=== PATIENT | female | born 1995 | race Caucasian/White ===

== ENCOUNTER 2017-11-26 19:04 | Emergency (ER) | payer MEDICAID ==
[2017-11-26 19:22] VITALS: BP 142/87
[2017-11-26] MEDS ORDERED: Sodium Chloride 0.9% 10 ML Syringe FLUSH PRN (19:42)
[2017-11-26] MEDS ORDERED: Ondansetron 4 MG/2 ML SDV IVPUSH ONE (19:42)
[2017-11-26] MEDS ORDERED: Sodium Chloride 0.9% 1,000 ML IV SCH ×2 (19:45→21:00)
--- NOTE | 2017-11-26 20:04 | EDM.PDOC ---
ED HPI GENERAL MEDICAL PROBLEM - General Chief Complaint: Gastrointestinal Problem Stated Complaint: flu complications Time Seen by Provider: 11/26/17 19:17 Source of Information: Reports: Patient, RN Notes Reviewed - History of Present Illness INITIAL COMMENTS - FREE TEXT/NARRATIVE: 22 year old female with onset of cough, congestion, fever, chills, myalgias 3 to 4 days ago. Started with nausea, vomiting this past early afternoon. Was evaluated at clinic, tested positive for influenza B, started on tamifu. Already nausea, vomiting before she took her first dose. Continued nausea, vomiting, has also had 3 episodes of diarrhea. She is about 12 weeks . No breathing difficulty. No abd pain or cramping at this time. Mouth feels dry. 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: Neurological History: Reports: Migraines - Past Surgical History HEENT Surgical History: Reports: Oral Surgery, Tonsillectomy Neurological Surgical History: Reports: None Social & Family History - Family History Family Medical History: Noncontributory - Tobacco Use Smoking Status *Q: Never Smoker Second Hand Smoke Exposure: Yes - Caffeine Use Caffeine Use: Reports: None - Alcohol Use Days Per Week of Alcohol Use: 0 Number of Drinks Per Day: 0 Total Drinks Per Week: 0 - Recreational Drug Use Recreational Drug Use: No Drug Use in Last 12 Months: No ED ROS GENERAL - Review of Systems Review Of Systems: See Below Constitutional: Reports: Fever, Chills HEENT: Reports: Rhinitis, Sinus Problem (nasal and sinus nikia. ), Throat Pain Respiratory: Reports: Cough, Sputum Cardiovascular: Reports: Chest Pain (with coughing) GI/Abdominal: Reports: Diarrhea, Nausea, Vomiting. Denies: Abdominal Pain Musculoskeletal: Reports: Other (generalized achiness) Neurological: Reports: Dizziness, Headache (now better) ED EXAM, GI/ABD - Physical Exam Exam: See Below General Appearance: Alert, Mild Distress Nose: Nasal Drainage, Clear Rhinorrhea Throat/Mouth: Other (oral mucosa dry) Head: No: Facial Swelling Neck: Supple, Full Range of Motion Respiratory/Chest: No Respiratory Distress, Lungs Clear, Normal Breath Sounds. No: Rhonchi, Wheezing Cardiovascular: Tachycardia GI/Abdominal Exam: Soft, Non-Tender. No: Guarding Extremities: Normal Inspection Neurological: Alert, Oriented, No Motor/Sensory Deficits Skin Exam: Warm, Dry, Normal Color Course - Vital Signs Last Recorded V/S: Last Vital Signs Temp 98.2 F 11/26/17 19:16 Pulse 131 H 11/26/17 19:16 Resp 22 H 11/26/17 19:16 BP 142/87 H 11/26/17 19:16 Pulse Ox 99 11/26/17 19:16 - Orders/Labs/Meds Orders: Active Orders 24 hr Category Date Time Status Peripheral IV Care [RC] . DIRECTED Care 11/26/17 19:42 Active Peripheral IV Insertion Adult [OM.PC] Stat Oth 11/26/17 19:42 Ordered Meds: Medications Discontinued Medications Generic Name Dose Route Start Last Admin Trade Name Freq PRN Reason Stop Dose Admin Sodium Chloride 1,000 mls @ 999 mls/hr 11/26/17 19:45 11/26/17 19:54 Normal Saline IV 999 mls/hr ONETIME LEEANN Administration Sodium Chloride 1,000 mls @ 999 mls/hr 11/26/17 21:00 11/26/17 21:10 Normal Saline IV 999 mls/hr ONETIME LEEANN Administration Ondansetron HCl 2 mg 11/26/17 19:42 11/26/17 19:56 Zofran IVPUSH 11/26/17 19:43 2 mg ONETIME ONE Administration Sodium Chloride 10 ml 11/26/17 19:42 11/26/17 21:10 Saline Flush FLUSH 10 ml ASDIRECTED PRN Administration Keep Vein Open - Re-Assessments/Exams Free Text/Narrative Re-Assessment/Exam: 11/27/17 00:05. Patient still has not voided after first liter of normal saline so we did give a second liter. with the second liter she had voided once and felt the need to void again indicating we are catching up on fluid balance. She felt much better. No further vomiting while here in the ED. Have discussed with patient that her initial illness of influenza is running its course as expected , she is reaching the tail end of the bad part of that with her symptoms having started 4 days ago. However now it appears she has a stomach flu virus on top of the influenza with onset of vomiting and diarrhea today. She is not going to be able to take the Tamiflu with her current nausea and vomiting. Discharge instructions as documented. Departure - Departure Time of Disposition: 22:46 Disposition: Home, Self-Care 01 Condition: Fair Clinical Impression: Influenza, First trimester Vomiting Qualifiers: Vomiting type: unspecified Vomiting Intractability: non-intractable Nausea presence: with nausea Qualified Code(s): R11.2 - Nausea with vomiting, unspecified Diarrhea Qualifiers: Diarrhea type: unspecified type Qualified Code(s): R19.7 - Diarrhea, unspecified - Discharge Information Instructions: Diarrhea, Adult, Influenza, Adult, [id number], Nausea and Vomiting, Adult Referrals: Monica Tomlinson PA-C [Primary Care Provider] - Forms: ED Department Discharge Additional Instructions: Clear liquids only until about noon tomorrow, small amounts at a time, than carefully advanced diet slowly as tolerated, avoid milk and dairy products for 2 -3 days. Probiotic 2-3 times daily for the next week, stop the tamiflu, follow up clinic if not much better within 2 to 3 days as expected, return to ED as needed if sx worsening in any way. - My Orders Last 24 Hours: My Active Orders 11/26/17 19:42 Peripheral IV Care [RC] . DIRECTED Peripheral IV Insertion Adult [OM.PC] Stat - Assessment/Plan Last 24 Hours: My Active Orders 11/26/17 19:42 Peripheral IV Care [RC] . DIRECTED Peripheral IV Insertion Adult [OM.PC] Stat
== END 2017-11-26 23:00 | disposition home or self-care (01) ==
LOC: JD.ED 19:04 → SUPCPDRO 19:04 → JD.ED 23:00
DX: O99.511 Diseases of the respiratory system complicating pregnancy, first trimester (principal); J11.1 Influenza due to unidentified influenza virus with other respiratory manifestations; O21.9 Vomiting of pregnancy, unspecified; R19.7 Diarrhea, unspecified; Z3A.12 12 weeks gestation of pregnancy
CPT/HCPCS: 96361; 96374; 99283; J2405; J7040; J7050

== ENCOUNTER 2018-06-08 05:53 | Inpatient (IN) | payer MEDICAID ==
--- NOTE | 2018-06-08 08:18 | PCM.LDHP ---
L&D History of Present Illness - General Date of Service: 06/08/18 Admit Problem/Dx: Admission Diagnosis/Problem Admission Diagnosis/Problem Source of Information: Patient History Limitations: Reports: No Limitations - History of Present Illness Introduction:: 22-year-old 002 MAT 06/12/18 with estimated gestational age of 39 weeks and 3 days presented to labor and delivery for induction of labor. Patient has had a history of hemorrhage. GBS negative. Patient taking Wellbutrin 151 tablet twice daily Patient lives in [place] No history of MRSA Initial ultrasound 11/03/2017 at 8 weeks 3 days MAT 06/12/18 Blood type A positive, antibody screen negative. On 11/24/2017 hemoglobin hematocrit 13.0 and 38.5 platelets 221,000, rubella immune, urine culture mixed farshad, On 03/11/18 hemoglobin hematocrit 11.2/34.8 platelets 209,001 hour OB glucose screen 70 04/27/18 group B strep negative Patient in labor and delivery for induction of labor. 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: Neurological History: Reports: Migraines - Past Surgical History HEENT Surgical History: Reports: Oral Surgery, Tonsillectomy Neurological Surgical History: Reports: None Social & Family History - Family History Family Medical History: Noncontributory - Caffeine Use Caffeine Use: Reports: None H&P Review of Systems - Review of Systems: Review Of Systems: See Below General: Reports: No Symptoms HEENT: Reports: No Symptoms Pulmonary: Reports: No Symptoms Cardiovascular: Reports: No Symptoms Gastrointestinal: Reports: No Symptoms Genitourinary: Reports: No Symptoms Musculoskeletal: Reports: No Symptoms Skin: Reports: No Symptoms Psychiatric: Reports: No Symptoms Neurological: Reports: No Symptoms Hematologic/Lymphatic: Reports: No Symptoms Immunologic: Reports: No Symptoms L&D Exam - Exam Exam: See Below - OB Specific Fundal Height In cm: 40 Movement: Active Heart Tones: Present Heart Tones per Min: 135 Heart Rate (FHR) Variability: Moderate (6-25 bmp) Presentation: Vertex - Padilla Score Padilla Score Cervix Position: Posterior Padilla Score Consistency: Soft Padilla Score Effacement: 51-70% Padilla Score Dilation: 1-2 cm Padilla Score Infant's Station: -3 Padilla Score Total: 5 - Exam General: Alert, Oriented HEENT: Conjunctiva Clear, Mucosa Moist & [place], Posterior Pharynx Clear, PERRLA Neck: Supple, Trachea Midline Lungs: Clear to Auscultation, Normal Respiratory Effort Cardiovascular: Regular Rate, Regular Rhythm GI/Abdominal Exam: Normal Bowel Sounds, Soft Genitourinary: Normal external exam Extremities: Normal Inspection, Normal Range of Motion, Non-Tender, No Pedal Edema, Normal Capillary Refill Skin: Warm, Dry, Intact Neurological: Reflexes Equal Bilateral Psychiatric: Alert, Normal Affect, Normal Mood - Problem List (1) 39 weeks gestation of SNOMED Code(s): 61200480 ICD Code: Z3A.39 - 39 WEEKS GESTATION OF Status: Acute Current Visit: Yes (2) Anxiety associated with depression SNOMED Code(s): 67319109, 943282564 ICD Code: F41.8 - OTHER SPECIFIED ANXIETY DISORDERS Status: Acute Current Visit: Yes Problem List Initiated/Reviewed/Updated: No Assessment/Plan Comment:: Plan induction of labor and delivery
[2018-06-08] MEDS ORDERED: Nalbuphine 20 MG/ML 1 ML Syringe IVPUSH PRN (08:37)
[2018-06-08] MEDS ORDERED: Sodium Chloride 0.9% 10 ML Syringe FLUSH PRN (08:37)
[2018-06-08] MEDS ORDERED: Ondansetron 4 MG/2 ML SDV IVPUSH PRN (08:37)
[2018-06-08] MEDS ORDERED: Oxytocin/Lactated Ringers 20 UNIT/1,000 ML BAG IV SCH (08:45)
[2018-06-08] MEDS ORDERED: buPROPion 100 MG Tab.SR PO SCH (09:00)
[2018-06-08] MEDS: Misoprostol 25 MCG (1/4 of 100 MCG) Tab VAG SCH ×2 (09:20→12:26)
[2018-06-08] MEDS: buPROPion 150 MG Tab.SR PO SCH (11:27)
[2018-06-08] MEDS ORDERED: Lidocaine 1% 50 ML MDV INJECT ONE (12:00)
--- NOTE | 2018-06-08 12:26 | PCM.PREANE ---
Preanesthetic Assessment - Anesthesia/Transfusion/Family Hx Anesthesia History: Prior Anesthesia Reaction Type of Anesthesia Reaction: Other (see below) (N/V) Family History of Anesthesia Reaction: No Transfusion History: No Prior Transfusion(s) - Review of Systems General: No Symptoms Pulmonary: No Symptoms Cardiovascular: No Symptoms Gastrointestinal: No Symptoms Neurological: Headache Other: Reports: Depression (on medication) - Physical Assessment O2 Sat by Pulse Oximetry: 100 Respiratory Rate: 16 Vital Signs: Last Vital Signs Temp 36.4 C 06/08/18 08:37 Pulse 92 06/08/18 08:37 Resp 16 06/08/18 08:37 BP 123/76 06/08/18 08:37 Pulse Ox 100 06/08/18 08:37 Height: 1.65 m Weight: 94.483 kg ASA Class: 2 Mental Status: Alert & Oriented x3 Airway Class: Mallampati = 2 Dentition: Reports: Normal Dentition Thyro-Mental Finger Breadths: 3 Mouth Opening Finger Breadths: 3 ROM/Head Extension: Full Lungs: Clear to Auscultation, Normal Respiratory Effort Cardiovascular: Regular Rate, Regular Rhythm - Lab Values: Laboratory Last Values WBC 10.69 K/mm3 (3.98-10.04) H 06/08/18 08:20 RBC 3.97 M/mm3 (3.98-5.22) L 06/08/18 08:20 Hgb 10.4 gm/L (11.2-15.7) L 06/08/18 08:20 Hct 32.9 % (34.1-44.9) L 06/08/18 08:20 MCV 82.9 fl (79.4-94.8) 06/08/18 08:20 MCH 26.2 pg (25.6-32.2) 06/08/18 08:20 MCHC 31.6 g/dl (32.2-35.5) L 06/08/18 08:20 RDW Std Deviation 41.6 fL (36.4-46.3) 06/08/18 08:20 Plt Count 176 K/mm3 (182-369) L 06/08/18 08:20 MPV 11.5 fl (9.4-12.3) 06/08/18 08:20 Blood Type A POSITIVE 06/08/18 08:20 Gel Antibody Screen Negative 06/08/18 08:20 - Allergies Allergies/Adverse Reactions: Allergies Allergy/AdvReac Type Severity Reaction Status Date / Time No Known Allergies Allergy Verified 06/08/18 08:47 - Blood Blood Available: No Product(s) Available: None - Anesthesia Plan Pre-Op Medication Ordered: None - Acknowledgements Anesthesia Type Planned: Epidural Pt an Appropriate Candidate for the Planned Anesthesia: Yes Alternatives and Risks of Anesthesia Discussed w Pt/Guardian: Yes Pt/Guardian Understands and Agrees with Anesthesia Plan: Yes PreAnesthesia Questionnaire HEENT History: Reports: Other (See Below) Other HEENT History: Wears glasses Genitourinary History: Reports: Pyelonephritis, Renal Calculus, UTI, 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: , 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 (See Below) Other OB/BYN History: Infertility, hx PPH Neurological History: Reports: Migraines, Other (See Below) Other Neuro History: Dizziness with migraines Psychiatric History: Reports: Anxiety, Depression - Past Surgical History HEENT Surgical History: Reports: Oral Surgery, Tonsillectomy Female Surgical History: Reports: Oophorectomy, Other (See Below) Other Female Surgeries/Procedures: Right ovarian cyst removed Neurological Surgical History: Reports: None - SUBSTANCE USE Smoking Status *Q: Never Smoker Recreational Drug Use History: No - HOME MEDS Home Medications: Home Meds Pnv No.122/Iron/Folic Acid [ Multi Tablet] 1 each PO DAILY 04/25/18 [ History] buPROPion HCl [Wellbutrin Sr] 150 mg PO BID 04/25/18 [History] - CURRENT (IN HOUSE) MEDS Current Meds: Current Medications Bupropion HCl (Wellbutrin Sr) 150 mg PO Q12HR LEEANN Last Admin: 06/08/18 11:27 Dose: 150 mg Lactated Ringer's (Ringers, Lactated) 1,000 mls @ 100 mls/hr IV ASDIRECTED LEEANN Oxytocin/Lactated Ringer's (Pitocin In Lr 20 Units/1,000 Ml) 20 unit in 1,000 mls @ 500 mls/hr IV ASDIRECTED [facility]; Protocol Misoprostol (Cytotec) 25 mcg VAG Q3HR LEEANN Stop: 06/08/18 15:01 Last Admin: 06/08/18 09:20 Dose: 25 mcg Nalbuphine HCl (Nubain) 10 mg IVPUSH Q2H PRN PRN Reason: pain Ondansetron HCl (Zofran) 4 mg IVPUSH Q4H PRN PRN Reason: Nausea/Vomiting Sodium Chloride (Saline Flush) 10 ml FLUSH ASDIRECTED PRN PRN Reason: Keep Vein Open Discontinued Medications Bupropion HCl (Wellbutrin Sr) 150 mg PO Q12HR LEEANN Last Admin: 06/08/18 11:12 Dose: Not Given Lidocaine HCl (Xylocaine 1%) 20 ml INJECT ONETIME ONE Stop: 06/08/18 12:01
[2018-06-08] MEDS: Lactated Ringers 1,000 ML IV SCH ×3 (13:48→18:58)
--- NOTE | 2018-06-08 16:23 | PCM.SN ---
- Free Text/Narrative Note: Amniotomy at 1622 clear fluid. Cervix //S/P/Vtx-1 Cat I FHR before and after amniotomy.
[2018-06-08] MEDS ORDERED: ePHEDrine 50 MG/ML SDV IVPUSH PRN (16:36)
[2018-06-08] MEDS ORDERED: fentaNYL 100 MCG/2 ML SDV EPIDUR PRN (16:36)
[2018-06-08] MEDS ORDERED: diphenhydrAMINE 50 MG/ML SDV IVPUSH PRN (16:36)
[2018-06-08] MEDS ORDERED: Bupivacaine/fentaNYL/NS 100 ML Bag EPIDUR SCH (16:45)
--- NOTE | 2018-06-08 19:12 | PCM.SN ---
- Free Text/Narrative Note: 1910 hrs. Cervix is 4 cm dilated, 70% effaced, soft, posterior, vertex -1. In tractions every 2-3 minutes. Epidural has been placed with good relief. Category 1 heart rate.
[2018-06-08] MEDS ORDERED: Misoprostol 200 MCG Tab ONE (20:46)
--- NOTE | 2018-06-08 20:56 | PCM.DEL ---
L & D Note - General Info Date of Service: 06/08/18 Mother's Due Date: 06/12/18 - Delivery Note Labor: Augmented by ARM Cervical Ripening Method: Misoprostil Delivery Outcome: Livebirth (Female liveborn at 2 hrs. SELVIN Apgars 8/9 weight pending) Delivery Method: Spontaneous Vaginal Delivery-Single Delivery Mode: Spontaneous Presentation: Right Occiput Anterior (SELVIN) Nuchal Cord: None Prep: Povidone-Iodine (Betadine Anesthesia Type: Epidural Amniotic Fluid Description: Clear Episiotomy Type: None Laceration: None Placenta: Intact, Spontaneous (At 2044 hrs. examined and tacked discarded. Patient given 200 g Cytotec 2 buccal 1 left 1 right because of history of hemorrhage previous delivery.) Cord: 3 Vessels Estimated Blood Loss: 250 Resuscitation Needed: No : Suctioned, Bulb Syringe, Stimulated, Warmed, Kyle Used, Warmer Used Provider: Zaire Levy Score 1 min: 8 Score 5 min: 9 - General Info Date of Service: 06/08/18 Functional Status: Reports: Pain Controlled - Review of Systems General: Reports: No Symptoms HEENT: Reports: No Symptoms Pulmonary: Reports: No Symptoms Cardiovascular: Reports: No Symptoms Gastrointestinal: Reports: No Symptoms Genitourinary: Reports: No Symptoms Musculoskeletal: Reports: No Symptoms Skin: Reports: No Symptoms Neurological: Reports: No Symptoms Psychiatric: Reports: No Symptoms - Patient Data Vitals - Most Recent: Last Vital Signs Temp 97.5 F 06/08/18 08:37 Pulse 92 06/08/18 08:37 Resp 16 06/08/18 12:26 BP 123/76 06/08/18 08:37 Pulse Ox 100 06/08/18 12:26 Weight - Most Recent: 208 lb 4.8 oz I&O - Last 24 Hours: Intake & Output 06/08/18 06/08/18 06/08/18 06:59 14:59 22:59 Intake Total 120 Balance 120 Lab Results Last 24 Hours: Laboratory Results - last 24 hr 06/08/18 06/08/18 06/08/18 Range/Units 08:20 08:20 08:20 WBC 10.69 H (3.98-10.04) K/mm3 RBC 3.97 L (3.98-5.22) M/mm3 Hgb 10.4 L (11.2-15.7) gm/L Hct 32.9 L (34.1-44.9) % MCV 82.9 (79.4-94.8) fl MCH 26.2 (25.6-32.2) pg MCHC 31.6 L (32.2-35.5) g/dl RDW Std Deviation 41.6 (36.4-46.3) fL Plt Count 176 L (182-369) K/mm3 MPV 11.5 (9.4-12.3) fl RPR Non-reactive (NONREACTIVE) Blood Type A POSITIVE Gel Antibody Screen Negative Med Orders - Current: Current Medications Bupropion HCl (Wellbutrin Sr) 150 mg PO Q12HR [facility] Last Admin: 06/08/18 11:27 Dose: 150 mg Diphenhydramine HCl (Benadryl) 25 mg IVPUSH Q6H PRN PRN Reason: pruritis Ephedrine Sulfate (Ephedrine Sulfate) 5 mg IVPUSH ASDIRECTED PRN PRN Reason: Hypotension Fentanyl (Sublimaze) 100 mcg EPIDUR Q3H PRN PRN Reason: Pain Last Admin: 06/08/18 17:50 Dose: 100 mcg Fentanyl/Bupivacaine HCl (Fentanyl/Bupivacaine/Ns 2 Mcg-0.125% 100 Ml) 100 ml EPIDUR ASDIRECTED [facility] Last Admin: 06/08/18 17:49 Dose: 100 ml Lactated Ringer's (Ringers, Lactated) 1,000 mls @ 100 mls/hr IV ASDIRECTED [facility] Last Admin: 06/08/18 18:58 Dose: 100 mls/hr Oxytocin/Lactated Ringer's (Pitocin In Lr 20 Units/1,000 Ml) 20 unit in 1,000 mls @ 500 mls/hr IV ASDIRECTED [facility]; Protocol Nalbuphine HCl (Nubain) 10 mg IVPUSH Q2H PRN PRN Reason: pain Ondansetron HCl (Zofran) 4 mg IVPUSH Q4H PRN PRN Reason: Nausea/Vomiting Sodium Chloride (Saline Flush) 10 ml FLUSH ASDIRECTED PRN PRN Reason: Keep Vein Open Discontinued Medications Bupropion HCl (Wellbutrin Sr) 150 mg PO Q12HR LEEANN Last Admin: 06/08/18 11:12 Dose: Not Given Lidocaine HCl (Xylocaine 1%) 20 ml INJECT ONETIME ONE Stop: 06/08/18 12:01 Misoprostol (Cytotec) 25 mcg VAG Q3HR LEEANN Stop: 06/08/18 15:01 Last Admin: 06/08/18 12:26 Dose: 25 mcg Misoprostol (Cytotec) Confirm Administered Dose 200 mcg .ROUTE .STK-MED ONE Stop: 06/08/18 20:47 - Problem List & Annotations (1) 39 weeks gestation of SNOMED Code(s): 20776254 Code(s): Z3A.39 - 39 WEEKS GESTATION OF Status: Acute Current Visit: Yes (2) Anxiety associated with depression SNOMED Code(s): 43357713, 784564766 Code(s): F41.8 - OTHER SPECIFIED ANXIETY DISORDERS Status: Acute Current Visit: Yes (3) Normal delivery SNOMED Code(s): 09868892, 509400341 Code(s): O80 - ENCOUNTER FOR FULL-TERM UNCOMPLICATED DELIVERY; Z37.9 - OUTCOME OF DELIVERY, UNSPECIFIED Status: Acute Current Visit: No - Problem List Review Problem List Initiated/Reviewed/Updated: No - My Orders Last 24 Hours: My Active Orders 06/08/18 08:20 CBC W/O DIFF,HEMOGRAM [HEME] Stat TYPE AND SCREEN [BBK] Stat 06/08/18 08:37 Patient Status [ADT] Routine Activity as Tolerated [RC] PFP Communication Order [RC] ASDIRECTED Notify Provider [RC] PFP Notify Provider [RC] PRN Peripheral IV Care [RC] . DIRECTED Urinary Catheter Assessment [RC] ASDIRECTED Vital Signs [RC] PER UNIT ROUTINE Nalbuphine [Nubain] 10 mg IVPUSH Q2H PRN Ondansetron [Zofran] 4 mg IVPUSH Q4H PRN Sodium Chloride 0.9% [Saline Flush] 10 ml FLUSH ASDIRECTED PRN Electronic Heart Tones Ext w TOCO [WOMSER] Routine Electronic Heart Tones Internal [WOMSER] Per Unit Routine Peripheral IV Insertion Adult [OM.PC] Routine Resuscitation Status Routine 06/08/18 08:45 Lactated Ringers [Ringers, Lactated] 1,000 ml IV ASDIRECTED Oxytocin/Lactated Ringers [Pitocin in LR 20 Units/1,000 ML] 20 unit in 1,000 ml IV ASDIRECTED 06/08/18 11:15 buPROPion [Wellbutrin SR] 150 mg PO Q12HR 06/08/18 Breakfast Regular Diet [DIET] - Plan Plan:: Plan induction of labor and delivery
[2018-06-08] MEDS ORDERED: Witch Hazel Medicated Pads 100/Jar TOP PRN (21:02)
[2018-06-08] MEDS ORDERED: Benzocaine/Menthol 20%-0.5% Spray 56 GM Canister TOP PRN (21:02)
[2018-06-08] MEDS ORDERED: Acetaminophen 325 MG Tab PO PRN (21:02)
[2018-06-08] MEDS ORDERED: buPROPion 150 MG Tab.SR PO SCH ×2 (21:02→21:15)
[2018-06-08] MEDS ORDERED: Misoprostol 200 MCG Tab PO PRN (21:02)
[2018-06-08] MEDS ORDERED: Lanolin 100% Cream 7 GM Tube TOP PRN (21:02)
[2018-06-08] MEDS ORDERED: Docusate Sodium 100 MG Cap PO PRN (21:02)
[2018-06-08] MEDS ORDERED: Ondansetron 4 MG/2 ML SDV IVPUSH ONE (21:30)
[2018-06-08] MEDS ORDERED: Bupivacaine 0.25% 10 ML SDV ONE (22:00)
[2018-06-09] MEDS: buPROPion 150 MG Tab.SR PO SCH ×5 (00:21→22:44)
[2018-06-09] MEDS: Ibuprofen 600 MG Tab PO PRN ×3 (05:27→20:24)
--- NOTE | 2018-06-09 08:38 | PCM48HPAN ---
Post Anesthesia Note - EVALUATION WITHIN 48HRS OF ANESTHETIC Vital Signs in Normal Range: Yes Patient Participated in Evaluation: Yes Respiratory Function Stable: Yes Airway Patent: Yes Cardiovascular Function Stable: Yes Hydration Status Stable: Yes Pain Control Satisfactory: Yes Nausea and Vomiting Control Satisfactory: Yes Mental Status Recovered: Yes - COMMENTS/OBSERVATIONS Free Text/Narrative:: Patient stated her back was quite sore from the epidural incision but no other complaints than that. Educated her that, though its rare, back pain can persist up to 2 months. Patient understood and had no questions.
[2018-06-09] MEDS: Misoprostol 25 MCG (1/4 of 100 MCG) Tab VAG SCH (11:36)
[2018-06-09] MEDS: Prenatal Multivitamin with Calcium/Folic Acid/Iron Tab PO SCH (11:42)
--- NOTE | 2018-06-09 15:21 | PCM.SN ---
- Free Text/Narrative Note: PP#1 Afebrile, uterus involuting normally, no heavy vaginal bleeding, no leg cramping. Planning home tomorrow.
[2018-06-09] MEDS ORDERED: buPROPion 150 MG Tab.SR PO SCH (21:45)
--- NOTE | 2018-06-10 08:21 | PCM.DCSUM1 ---
Discharge Summary - Hospital Course Free Text/Narrative:: [facility] LIVE L/D Delivery Note Patient Name: LIZETT STRICKLAND Date of : 89 Patient Status: Inpatient Attending Provider: Zaire Levy Date: 06/08/18 20:50 Initialization Date: 06/08/18 20:50 L & D Note - General Info Date of Service: 06/08/18 Mother's Due Date: 06/12/18 - Delivery Note Labor: Augmented by ARM Cervical Ripening Method: Misoprostil Delivery Outcome: Livebirth (Female liveborn at 2 hrs. SELVIN Apgars 8/9 weight pending) Infant Delivery Method: Spontaneous Vaginal Delivery-Single Infant Delivery Mode: Spontaneous Presentation: Right Occiput Anterior (SELVIN) Nuchal Cord: None Prep: Povidone-Iodine (Betadine Anesthesia Type: Epidural Amniotic Fluid Description: Clear Episiotomy Type: None Laceration: None Placenta: Intact, Spontaneous (At 5 hrs. examined and tacked discarded. Patient given 200 g Cytotec 2 buccal 1 left 1 right because of history of hemorrhage previous delivery.) Cord: 3 Vessels Estimated Blood Loss: 250 Resuscitation Needed: No [place]: Suctioned, Bulb Syringe, Stimulated, Warmed, [place] Used, Warmer Used Provider: Zaire Levy Score 1 min: 8 Score 5 min: 9 - General Info Date of Service: 06/08/18 Functional Status: Reports: Pain Controlled - Review of Systems General: Reports: No Symptoms HEENT: Reports: No Symptoms Pulmonary: Reports: No Symptoms Cardiovascular: Reports: No Symptoms Gastrointestinal: Reports: No Symptoms Genitourinary: Reports: No Symptoms Musculoskeletal: Reports: No Symptoms Skin: Reports: No Symptoms Neurological: Reports: No Symptoms Psychiatric: Reports: No Symptoms - Patient Data Vitals - Most Recent: Last Vital Signs Temp 97.5 F 06/08/18 08:37 Pulse 92 06/08/18 08:37 Resp 16 06/08/18 12:26 BP 123/76 06/08/18 08:37 Pulse Ox 100 06/08/18 12:26 Weight - Most Recent: 208 lb 4.8 oz I&O - Last 24 Hours: Intake & Output 06/08/18 06/08/18 06/08/18 06:59 14:59 22:59 Intake Total 120 Balance 120 Lab Results Last 24 Hours: Laboratory Results - last 24 hr 06/08/18 06/08/18 06/08/18 Range/Units 08:20 08:20 08:20 WBC 10.69 H (3.98-10.04) K/mm3 RBC 3.97 L (3.98-5.22) M/mm3 Hgb 10.4 L (11.2-15.7) gm/L Hct 32.9 L (34.1-44.9) % MCV 82.9 (79.4-94.8) fl MCH 26.2 (25.6-32.2) pg MCHC 31.6 L (32.2-35.5) g/dl RDW Std Deviation 41.6 (36.4-46.3) fL Plt Count 176 L (182-369) K/mm3 MPV 11.5 (9.4-12.3) fl RPR Non-reactive (NONREACTIVE) Blood Type A POSITIVE Gel Antibody Screen Negative Med Orders - Current: Current Medications Bupropion HCl (Wellbutrin Sr) 150 mg PO Q12HR LEEANN Last Admin: 06/08/18 11:27 Dose: 150 mg Diphenhydramine HCl (Benadryl) 25 mg IVPUSH Q6H PRN PRN Reason: pruritis Ephedrine Sulfate (Ephedrine Sulfate) 5 mg IVPUSH ASDIRECTED PRN PRN Reason: Hypotension Fentanyl (Sublimaze) 100 mcg EPIDUR Q3H PRN PRN Reason: Pain Last Admin: 06/08/18 17:50 Dose: 100 mcg Fentanyl/Bupivacaine HCl (Fentanyl/Bupivacaine/Ns 2 Mcg-0.125% 100 Ml) 100 ml EPIDUR ASDIRECTED LEEANN Last Admin: 06/08/18 17:49 Dose: 100 ml Lactated Ringer's (Ringers, Lactated) 1,000 mls @ 100 mls/hr IV ASDIRECTED LEEANN Last Admin: 06/08/18 18:58 Dose: 100 mls/hr Oxytocin/Lactated Ringer's (Pitocin In Lr 20 Units/1,000 Ml) 20 unit in 1,000 mls @ 500 mls/hr IV ASDIRECTED LEEANN; Protocol Nalbuphine HCl (Nubain) 10 mg IVPUSH Q2H PRN PRN Reason: pain Ondansetron HCl (Zofran) 4 mg IVPUSH Q4H PRN PRN Reason: Nausea/Vomiting Sodium Chloride (Saline Flush) 10 ml FLUSH ASDIRECTED PRN PRN Reason: Keep Vein Open Discontinued Medications Bupropion HCl (Wellbutrin Sr) 150 mg PO Q12HR LEEANN Last Admin: 06/08/18 11:12 Dose: Not Given Lidocaine HCl (Xylocaine 1%) 20 ml INJECT ONETIME ONE Stop: 06/08/18 12:01 Misoprostol (Cytotec) 25 mcg VAG Q3HR LEEANN Stop: 06/08/18 15:01 Last Admin: 06/08/18 12:26 Dose: 25 mcg Misoprostol (Cytotec) Confirm Administered Dose 200 mcg .ROUTE .STK-MED ONE Stop: 06/08/18 20:47 - Problem List & Annotations (1) 39 weeks gestation of SNOMED Code(s): 33154311 Code(s): Z3A.39 - 39 WEEKS GESTATION OF Status: Acute Current Visit: Yes (2) Anxiety associated with depression SNOMED Code(s): 57279924, 312611848 Code(s): F41.8 - OTHER SPECIFIED ANXIETY DISORDERS Status: Acute Current Visit: Yes (3) Normal delivery SNOMED Code(s): 33397044, 798671439 Code(s): O80 - ENCOUNTER FOR FULL-TERM UNCOMPLICATED DELIVERY; Z37.9 - OUTCOME OF DELIVERY, UNSPECIFIED Status: Acute Current Visit: No - Problem List Review Problem List Initiated/Reviewed/Updated: No - My Orders Last 24 Hours: My Active Orders 06/08/18 08:20 CBC W/O DIFF,HEMOGRAM [HEME] Stat TYPE AND SCREEN [BBK] Stat 06/08/18 08:37 Patient Status [ADT] Routine Activity as Tolerated [RC] PFP Communication Order [RC] ASDIRECTED Notify Provider [RC] PFP Notify Provider [RC] PRN Peripheral IV Care [RC] . DIRECTED Urinary Catheter Assessment [RC] ASDIRECTED Vital Signs [RC] PER UNIT ROUTINE Nalbuphine [Nubain] 10 mg IVPUSH Q2H PRN Ondansetron [Zofran] 4 mg IVPUSH Q4H PRN Sodium Chloride 0.9% [Saline Flush] 10 ml FLUSH ASDIRECTED PRN Electronic Heart Tones Ext w TOCO [WOMSER] Routine Electronic Heart Tones Internal [WOMSER] Per Unit Routine Peripheral IV Insertion Adult [OM.PC] Routine Resuscitation Status Routine 06/08/18 08:45 Lactated Ringers [Ringers, Lactated] 1,000 ml IV ASDIRECTED Oxytocin/Lactated Ringers [Pitocin in LR 20 Units/1,000 ML] 20 unit in 1,000 ml IV ASDIRECTED 06/08/18 11:15 buPROPion [Wellbutrin SR] 150 mg PO Q12HR 06/08/18 Breakfast Regular Diet [DIET] - Plan Plan:: Plan induction of labor and delivery HPI Initial Comments: [facility] LIVE L/D Delivery Note Patient Name: LIZETT STRICKLAND Date of : 89 Patient Status: Inpatient Attending Provider: Zaire Levy Date: 06/08/18 20:50 Initialization Date: 06/08/18 20:50 L & D Note - General Info Date of Service: 06/08/18 Mother's Due Date: 06/12/18 - Delivery Note Labor: Augmented by ARM Cervical Ripening Method: Misoprostil Delivery Outcome: Livebirth (Female liveborn at 2041 hrs. SELVIN Apgars 8/9 weight pending) Delivery Method: Spontaneous Vaginal Delivery-Single Infant Delivery Mode: Spontaneous Presentation: Right Occiput Anterior (SELVIN) Nuchal Cord: None Prep: Povidone-Iodine (Betadine Anesthesia Type: Epidural Amniotic Fluid Description: Clear Episiotomy Type: None Laceration: None Placenta: Intact, Spontaneous (At 2044 hrs. examined and tacked discarded. Patient given 200 g Cytotec 2 buccal 1 left 1 right because of history of hemorrhage previous delivery.) Cord: 3 Vessels Estimated Blood Loss: 250 Resuscitation Needed: No [place]: Suctioned, Bulb Syringe, Stimulated, Warmed, [place] Used, Warmer Used Provider: Zaire Levy Score 1 min: 8 Score 5 min: 9 - General Info Date of Service: 06/08/18 Functional Status: Reports: Pain Controlled - Review of Systems General: Reports: No Symptoms HEENT: Reports: No Symptoms Pulmonary: Reports: No Symptoms Cardiovascular: Reports: No Symptoms Gastrointestinal: Reports: No Symptoms Genitourinary: Reports: No Symptoms Musculoskeletal: Reports: No Symptoms Skin: Reports: No Symptoms Neurological: Reports: No Symptoms Psychiatric: Reports: No Symptoms - Patient Data Vitals - Most Recent: Last Vital Signs Temp 97.5 F 06/08/18 08:37 Pulse 92 06/08/18 08:37 Resp 16 06/08/18 12:26 BP 123/76 06/08/18 08:37 Pulse Ox 100 06/08/18 12:26 Weight - Most Recent: 208 lb 4.8 oz I&O - Last 24 Hours: Intake & Output 06/08/18 06/08/18 06/08/18 06:59 14:59 22:59 Intake Total 120 Balance 120 Lab Results Last 24 Hours: Laboratory Results - last 24 hr 06/08/18 06/08/18 06/08/18 Range/Units 08:20 08:20 08:20 WBC 10.69 H (3.98-10.04) K/mm3 RBC 3.97 L (3.98-5.22) M/mm3 Hgb 10.4 L (11.2-15.7) gm/L Hct 32.9 L (34.1-44.9) % MCV 82.9 (79.4-94.8) fl MCH 26.2 (25.6-32.2) pg MCHC 31.6 L (32.2-35.5) g/dl RDW Std Deviation 41.6 (36.4-46.3) fL Plt Count 176 L (182-369) K/mm3 MPV 11.5 (9.4-12.3) fl RPR Non-reactive (NONREACTIVE) Blood Type A POSITIVE Gel Antibody Screen Negative Med Orders - Current: Current Medications Bupropion HCl (Wellbutrin Sr) 150 mg PO Q12HR LEEANN Last Admin: 06/08/18 11:27 Dose: 150 mg Diphenhydramine HCl (Benadryl) 25 mg IVPUSH Q6H PRN PRN Reason: pruritis Ephedrine Sulfate (Ephedrine Sulfate) 5 mg IVPUSH ASDIRECTED PRN PRN Reason: Hypotension Fentanyl (Sublimaze) 100 mcg EPIDUR Q3H PRN PRN Reason: Pain Last Admin: 06/08/18 17:50 Dose: 100 mcg Fentanyl/Bupivacaine HCl (Fentanyl/Bupivacaine/Ns 2 Mcg-0.125% 100 Ml) 100 ml EPIDUR ASDIRECTED [facility] Last Admin: 06/08/18 17:49 Dose: 100 ml Lactated Ringer's (Ringers, Lactated) 1,000 mls @ 100 mls/hr IV ASDIRECTED [facility] Last Admin: 06/08/18 18:58 Dose: 100 mls/hr Oxytocin/Lactated Ringer's (Pitocin In Lr 20 Units/1,000 Ml) 20 unit in 1,000 mls @ 500 mls/hr IV ASDIRECTED [facility]; Protocol Nalbuphine HCl (Nubain) 10 mg IVPUSH Q2H PRN PRN Reason: pain Ondansetron HCl (Zofran) 4 mg IVPUSH Q4H PRN PRN Reason: Nausea/Vomiting Sodium Chloride (Saline Flush) 10 ml FLUSH ASDIRECTED PRN PRN Reason: Keep Vein Open Discontinued Medications Bupropion HCl (Wellbutrin Sr) 150 mg PO Q12HR [facility] Last Admin: 06/08/18 11:12 Dose: Not Given Lidocaine HCl (Xylocaine 1%) 20 ml INJECT ONETIME ONE Stop: 06/08/18 12:01 Misoprostol (Cytotec) 25 mcg VAG Q3HR LEEANN Stop: 06/08/18 15:01 Last Admin: 06/08/18 12:26 Dose: 25 mcg Misoprostol (Cytotec) Confirm Administered Dose 200 mcg .ROUTE .STK-MED ONE Stop: 06/08/18 20:47 - Problem List & Annotations (1) 39 weeks gestation of SNOMED Code(s): 67813219 Code(s): Z3A.39 - 39 WEEKS GESTATION OF Status: Acute Current Visit: Yes (2) Anxiety associated with depression SNOMED Code(s): 10926169, 004223493 Code(s): F41.8 - OTHER SPECIFIED ANXIETY DISORDERS Status: Acute Current Visit: Yes (3) Normal delivery SNOMED Code(s): 65230886, 070525621 Code(s): O80 - ENCOUNTER FOR FULL-TERM UNCOMPLICATED DELIVERY; Z37.9 - OUTCOME OF DELIVERY, UNSPECIFIED Status: Acute Current Visit: No - Problem List Review Problem List Initiated/Reviewed/Updated: No - My Orders Last 24 Hours: My Active Orders 06/08/18 08:20 CBC W/O DIFF,HEMOGRAM [HEME] Stat TYPE AND SCREEN [BBK] Stat 06/08/18 08:37 Patient Status [ADT] Routine Activity as Tolerated [RC] PFP Communication Order [RC] ASDIRECTED Notify Provider [RC] PFP Notify Provider [RC] PRN Peripheral IV Care [RC] . DIRECTED Urinary Catheter Assessment [RC] ASDIRECTED Vital Signs [RC] PER UNIT ROUTINE Nalbuphine [Nubain] 10 mg IVPUSH Q2H PRN Ondansetron [Zofran] 4 mg IVPUSH Q4H PRN Sodium Chloride 0.9% [Saline Flush] 10 ml FLUSH ASDIRECTED PRN Electronic Heart Tones Ext w TOCO [WOMSER] Routine Electronic Heart Tones Internal [WOMSER] Per Unit Routine Peripheral IV Insertion Adult [OM.PC] Routine Resuscitation Status Routine 06/08/18 08:45 Lactated Ringers [Ringers, Lactated] 1,000 ml IV ASDIRECTED Oxytocin/Lactated Ringers [Pitocin in LR 20 Units/1,000 ML] 20 unit in 1,000 ml IV ASDIRECTED 06/08/18 11:15 buPROPion [Wellbutrin SR] 150 mg PO Q12HR 06/08/18 Breakfast Regular Diet [DIET] - Plan Plan:: Plan induction of labor and delivery Brief History: [facility] LIVE . L/D Delivery Note. [facility]: [id number] Date of : [birth year]Patient Status: Inpatient. Attending Provider: Zaire Levy Number: [id number]. Date: 06/08/18 20:50Initialization Date: 06/08/18 20:50. L & D Note. - General Info. Date of Service: 06/08/18. Mother's Due Date: 06/12/18. - Delivery Note. Labor: Augmented by ARM. Cervical Ripening Method : Misoprostil. Delivery Outcome: Livebirth (Female liveborn at 2042 hrs. SELVIN Apgars 8/9 weight pending). Delivery Method: Spontaneous Vaginal Delivery-Single. Infant Delivery Mode: Spontaneous. Presentation: Right Occiput Anterior (SELVIN). Nuchal Cord: None. Prep: Povidone-Iodine (Betadine. Anesthesia Type: Epidural. Amniotic Fluid Description: Clear. Episiotomy Type : None. Laceration: None. Placenta: Intact, Spontaneous (At 2045 hrs. examined and tacked discarded. Patient given 200 g Cytotec 2 buccal 1 left 1 right because of history of hemorrhage previous delivery.). Cord: 3 Vessels. Estimated Blood Loss: 250. Resuscitation Needed: No. : Suctioned, Bulb Syringe, Stimulated, Warmed, [place] Used, Warmer Used. Provider: Zaire Levy. Score 1 min: 8. Score 5 min : 9. - General Info. Date of Service: 06/08/18. Functional Status: Reports: Pain Controlled. - Review of Systems. General: Reports: No Symptoms. HEENT: Reports: No Symptoms. Pulmonary: Reports: No Symptoms. Cardiovascular: Reports : No Symptoms. Gastrointestinal: Reports: No Symptoms. Genitourinary: Reports : No Symptoms. Musculoskeletal: Reports: No Symptoms. Skin: Reports: No Symptoms. Neurological: Reports: No Symptoms. Psychiatric: Reports: No Symptoms. - Patient Data. Vitals - Most Recent: Last Vital Signs. Temp 97.5 F 06/08/18 08:37. Pulse 92 06/08/18 08:37. Resp 16 06/08/18 12:26. BP 123/ 76 06/08/18 08:37. Pulse Ox 100 06/08/18 12:26. Weight - Most Recent: 208 lb 4.8 oz. I&O - Last 24 Hours: Intake & Output. 06/08/1808/. 06:5914:5922:59. Intake [id number]. [id number]. Lab Results Last 24 Hours: Laboratory Results - last 24 hr. 06/08/1808Range/Units. : 2008:20. WBC 10.69 H (3.98-10.04) K/mm3. RBC 3.97 L (3.98-5.22) M/mm3. Hgb 10.4 L (11.2-15.7) gm/L. Hct 32.9 L (34.1-44.9) %. MCV 82.9 (79.4-94.8) fl. MCH 26.2 (25.6-32.2) pg. MCHC 31.6 L (32.2-35.5) g/dl. RDW Std Deviation 41.6 (36.4-46.3) fL. Plt Count 176 L (182-369) K/mm3. MPV 11.5 ( 9.4-12.3) fl. RPR Non-reactive (NONREACTIVE). Blood Type A POSITIVE. Gel Antibody Screen Negative. Med Orders - Current: Current Medications. Bupropion HCl (Wellbutrin Sr) 150 mg PO Q12HR LEEANN. Last Admin: 06/08/18 11:27 Dose: 150 mg. Diphenhydramine HCl (Benadryl) 25 mg IVPUSH Q6H PRN. PRN Reason: pruritis. Ephedrine Sulfate (Ephedrine Sulfate) 5 mg IVPUSH ASDIRECTED PRN. PRN Reason: Hypotension. Fentanyl (Sublimaze) 100 mcg EPIDUR Q3H PRN. PRN Reason: Pain. Last Admin: 06/08/18 17:50 Dose: 100 mcg. Fentanyl/Bupivacaine HCl (Fentanyl/Bupivacaine/Ns 2 Mcg-0.125% 100 Ml) 100 ml EPIDUR ASDIRECTED LEEANN. Last Admin: 06/08/18 17:49 Dose: 100 ml. Lactated Ringer's (Ringers, Lactated) 1,000 mls @ 100 mls/hr IV ASDIRECTED LEEANN. Last Admin: 06/08/18 18:58 Dose: 100 mls/hr. Oxytocin/Lactated Ringer's (Pitocin In Lr 20 Units/1,000 Ml) 20 unit in 1,000 mls @ 500 mls/hr IV ASDIRECTED LEEANN; Protocol. Nalbuphine HCl (Nubain) 10 mg IVPUSH Q2H PRN. PRN Reason: pain. Ondansetron HCl (Zofran) 4 mg IVPUSH Q4H PRN. PRN Reason: Nausea/Vomiting. Sodium Chloride (Saline Flush) 10 ml FLUSH ASDIRECTED PRN. PRN Reason: Keep Vein Open. Discontinued Medications. Bupropion HCl (Wellbutrin Sr) 150 mg PO Q12HR LEEANN. Last Admin: 06/08/18 11:12 Dose: Not Given. Lidocaine HCl ( Xylocaine 1%) 20 ml INJECT ONETIME ONE. Stop: 06/08/18 12:01. Misoprostol ( Cytotec) 25 mcg VAG Q3HR LEEANN. Stop: 06/08/18 15:01. Last Admin: 06/08/18 12: 26 Dose: 25 mcg. Misoprostol (Cytotec) Confirm Administered Dose 200 mcg .ROUTE .STK-MED ONE. Stop: 06/08/18 20:47. - Problem List & Annotations. (1) 39 weeks gestation of . SNOMED Code(s): 94526924. Code(s): Z3A.39 - 39 WEEKS GESTATION OF Status: Acute Current Visit: Yes. (2) Anxiety associated with depression. SNOMED Code(s): 07050765, 538627363. Code( s): F41.8 - OTHER SPECIFIED ANXIETY DISORDERS Status: Acute Current Visit: Yes. (3) Normal delivery. SNOMED Code(s): 08338554, 000742408. Code(s): O80 - ENCOUNTER FOR FULL-TERM UNCOMPLICATED DELIVERY; Z37.9 - OUTCOME OF DELIVERY, UNSPECIFIED Status: Acute Current Visit: No. - Problem List Review. Problem List Initiated/Reviewed/Updated: No. - My Orders. Last 24 Hours: My Active Orders. 06/08/18 08:20. CBC W/O DIFF,HEMOGRAM [HEME] Stat. TYPE AND SCREEN [BBK] Stat. 06/08/18 08:37. Patient Status [ADT] Routine. Activity as Tolerated [RC] PFP. Communication Order [RC] ASDIRECTED. Notify Provider [RC] PFP. Notify Provider [RC] PRN. Peripheral IV Care [RC] . DIRECTED. Urinary Catheter Assessment [RC] ASDIRECTED. Vital Signs [RC] PER UNIT ROUTINE. Nalbuphine [Nubain] 10 mg IVPUSH Q2H PRN. Ondansetron [Zofran] 4 mg IVPUSH Q4H PRN. Sodium Chloride 0.9% [Saline Flush] 10 ml FLUSH ASDIRECTED PRN. Electronic Heart Tones Ext w TOCO [WOMSER] Routine. Electronic Heart Tones Internal [WOMSER] Per Unit Routine. Peripheral IV Insertion Adult [ OM.PC] Routine. Resuscitation Status Routine. 06/08/18 08:45. Lactated Ringers [Ringers, Lactated] 1,000 ml IV ASDIRECTED. Oxytocin/Lactated Ringers [ Pitocin in LR 20 Units/1,000 ML] 20 unit in 1,000 ml IV ASDIRECTED. 06/08/18 11 :15. buPROPion [Wellbutrin SR] 150 mg PO Q12HR. 06/08/18 Breakfast. Regular Diet [DIET]. - Plan. Plan:: Plan induction of labor and delivery Diagnosis: Stroke: No - Discharge Data Discharge Date: 06/10/18 Discharge Disposition: Home, Self-Care 01 Condition: Good - Discharge Diagnosis/Problem(s) (1) 39 weeks gestation of SNOMED Code(s): 13297872 ICD Code: Z3A.39 - 39 WEEKS GESTATION OF Status: Acute Current Visit: Yes (2) Anxiety associated with depression SNOMED Code(s): 97460397, 146301437 ICD Code: F41.8 - OTHER SPECIFIED ANXIETY DISORDERS Status: Acute Current Visit: Yes (3) Normal delivery SNOMED Code(s): 02571105, 468178187 ICD Code: O80 - ENCOUNTER FOR FULL-TERM UNCOMPLICATED DELIVERY; Z37.9 - OUTCOME OF DELIVERY, UNSPECIFIED Status: Acute Current Visit: No - Patient Summary/Data Complications: none Consults: none Hospital Course: uneventful - Patient Instructions Diet: Regular Diet as Tolerated Driving: May Drive Today Showering/Bathing: May Shower, No Tub Bathing/Swimming (6 weeks) Notify Provider of: Fever, Increased Pain, Swelling and Redness, Drainage, Nausea and/or Vomiting - Discharge Plan *PRESCRIPTION DRUG MONITORING PROGRAM REVIEWED*: Not Applicable *COPY OF PRESCRIPTION DRUG MONITORING REPORT IN PATIENT MACY: Not Applicable Home Medications: Home Meds Pnv No.122/Iron/Folic Acid [ Multi Tablet] 1 each PO DAILY 04/25/18 [ History] buPROPion HCl [Wellbutrin SR] 150 mg PO BID 04/25/18 [History] Acetaminophen [Tylenol] 650 mg PO Q4H PRN tablet 06/10/18 [Rx] Benzocaine/Menthol [Dermoplast Pain Relief [place]] 1 spray TOP ASDIRECTED PRN #1 canister 06/10/18 [Rx] Docusate Sodium [Colace] 100 mg PO BID PRN cap 06/10/18 [Rx] Ibuprofen [Motrin] 600 mg PO Q4H PRN tablet 06/10/18 [Rx] Lanolin [Lansinoh HPA] 1 applic TOP ASDIRECTED PRN tube 06/10/18 [Rx] Witedwina Guyel [Tucks] 1 pad TOP ASDIRECTED PRN pad 06/10/18 [Rx] Referrals: Zaire Levy MD [Primary Care Provider] - - Discharge Summary/Plan Comment DC Time >30 min.: No - Patient Data Vitals - Most Recent: Last Vital Signs Temp 98.6 F 06/10/18 02:16 Pulse 83 06/10/18 02:16 Resp 16 06/10/18 02:16 BP 124/63 06/10/18 02:16 Pulse Ox 100 06/10/18 02:16 Weight - Most Recent: 208 lb 4.8 oz I&O - Last 24 hours: Intake & Output 06/09/18 06/10/18 06/10/18 22:59 06:59 14:59 Intake Total 480 Balance 480 Med Orders - Current: Current Medications Acetaminophen (Tylenol) 650 mg PO Q4H PRN PRN Reason: mild pain or fever Benzocaine/Menthol (Dermoplast Pain Relief [place]) 0 gm TOP ASDIRECTED PRN PRN Reason: Perineal Comfort Measure Bupropion HCl (Wellbutrin Sr) 150 mg PO BID [facility] Last Admin: 06/09/18 22:30 Dose: Not Given Docusate Sodium (Colace) 100 mg PO BID PRN PRN Reason: Constipation Emollient Ointment (Lansinoh Hpa) 0 gm TOP ASDIRECTED PRN PRN Reason: Sore Nipples Ibuprofen (Motrin) 600 mg PO Q4H PRN PRN Reason: Mild pain or fever Last Admin: 06/09/18 20:24 Dose: 600 mg Misoprostol (Cytotec) 400 mcg PO Q1H PRN PRN Reason: Bleeding Last Admin: 06/08/18 20:50 Dose: 400 mcg Prenat Multivit/Hot Oiler/Iron/Folic Ac ( Plus Iron) 1 each PO DAILY [facility] Last Admin: 06/09/18 11:42 Dose: 1 each Witch Ad[place] (Tucks) 1 pad TOP ASDIRECTED PRN PRN Reason: Hemorrhoid pain Discontinued Medications Bupropion HCl (Wellbutrin Sr) 150 mg PO Q12HR [facility] Last Admin: 06/08/18 11:12 Dose: Not Given Bupropion HCl (Wellbutrin Sr) 150 mg PO Q12HR [facility] Last Admin: 06/09/18 11:36 Dose: Not Given Bupropion HCl (Wellbutrin Sr) 150 mg PO Q12HR [facility] Last Admin: 06/09/18 22:44 Dose: Not Given Bupropion HCl (Wellbutrin Sr) 150 mg PO BID [facility] Diphenhydramine HCl (Benadryl) 25 mg IVPUSH Q6H PRN PRN Reason: pruritis Ephedrine Sulfate (Ephedrine Sulfate) 5 mg IVPUSH ASDIRECTED PRN PRN Reason: Hypotension Fentanyl (Sublimaze) 100 mcg EPIDUR Q3H PRN PRN Reason: Pain Last Admin: 06/08/18 17:50 Dose: 100 mcg Fentanyl/Bupivacaine HCl (Fentanyl/Bupivacaine/Ns 2 Mcg-0.125% 100 Ml) 100 ml EPIDUR ASDIRECTED [facility] Last Admin: 06/08/18 17:49 Dose: 100 ml Lactated Ringer's (Ringers, Lactated) 1,000 mls @ 100 mls/hr IV ASDIRECTED [facility] Last Admin: 06/08/18 18:58 Dose: 100 mls/hr Oxytocin/Lactated Ringer's (Pitocin In Lr 20 Units/1,000 Ml) 20 unit in 1,000 mls @ 500 mls/hr IV ASDIRECTED [facility]; Protocol Last Admin: 06/08/18 20:43 Dose: 500 mls/hr Lidocaine HCl (Xylocaine 1%) 20 ml INJECT ONETIME ONE Stop: 06/08/18 12:01 Last Admin: 06/09/18 11:37 Dose: Not Given Misoprostol (Cytotec) 25 mcg VAG Q3HR LEEANN Stop: 06/08/18 15:01 Last Admin: 06/09/18 11:36 Dose: Not Given Misoprostol (Cytotec) Confirm Administered Dose 200 mcg .ROUTE .STK-MED ONE Stop: 06/08/18 20:47 Last Admin: 06/09/18 11:37 Dose: Not Given Nalbuphine HCl (Nubain) 10 mg IVPUSH Q2H PRN PRN Reason: pain Ondansetron HCl (Zofran) 4 mg IVPUSH Q4H PRN PRN Reason: Nausea/Vomiting Ondansetron HCl (Zofran) 4 mg IVPUSH ONETIME ONE Stop: 06/08/18 21:31 Last Admin: 06/08/18 21:40 Dose: 4 mg Sodium Chloride (Saline Flush) 10 ml FLUSH ASDIRECTED PRN PRN Reason: Keep Vein Open
[2018-06-10] MEDS: buPROPion 150 MG Tab.SR PO SCH (08:52)
[2018-06-10] MEDS: Prenatal Multivitamin with Calcium/Folic Acid/Iron Tab PO SCH (08:52)
[2018-06-10] MEDS: Ibuprofen 600 MG Tab PO PRN (08:52)
[2018-06-10 09:17] VITALS: BP 134/84
== END 2018-06-10 11:52 | disposition home or self-care (01) | DRG 775 ==
LOC: JD.OB 07:39 → OBSVTOIN 20:42 → JD.OB 20:42
PROVIDERS: ADMIT Obstetrics & Gynecology; ATTEND Obstetrics & Gynecology
PROC: 10907ZC Drainage of Amniotic Fluid, Therapeutic from Products of Conception, Via Natural or Artificial Opening (ICD-10-PCS; principal; 2018-06-08)
PROC: 3E0P7VZ Introduction of Hormone into Female Reproductive, Via Natural or Artificial Opening (ICD-10-PCS; principal; 2018-06-08)
PROC: 10E0XZZ Delivery of Products of Conception, External Approach (ICD-10-PCS; principal; 2018-06-08)
PROC: 3E0R3BZ Introduction of Anesthetic Agent into Spinal Canal, Percutaneous Approach (ICD-10-PCS; 2018-06-08)
PROC: 00HU33Z Insertion of Infusion Device into Spinal Canal, Percutaneous Approach (ICD-10-PCS; 2018-06-08)
DX: O99.344 Other mental disorders complicating childbirth (principal); Z37.0 Single live birth; F41.8 Other specified anxiety disorders; Z3A.39 39 weeks gestation of pregnancy; Z79.899 Other long term (current) drug therapy; Z87.440 Personal history of urinary (tract) infections
CPT/HCPCS: 01967; 36415; 51702; 59025; 59409; 85025; 85027; 86592; 86850; 86900; 86901; A9270-GY; J2405; J2590; J3010; J3490; J7120

== ENCOUNTER 2019-03-24 13:23 | Emergency (ER) | payer SELFPAY ==
[2019-03-24 14:16] VITALS: BP 126/98
[2019-03-24] MEDS ORDERED: Sodium Chloride 0.9% 1,000 ML IV ONE ×2 (14:19→18:34)
[2019-03-24] MEDS ORDERED: Sodium Chloride 0.9% 10 ML Syringe FLUSH PRN (14:21)
[2019-03-24] MEDS ORDERED: Ketorolac 30 MG/ML SDV IVPUSH ONE (14:54)
[2019-03-24] MEDS ORDERED: Ondansetron 4 MG/2 ML SDV IVPUSH ONE (14:54)
[2019-03-24] MEDS ORDERED: Acetaminophen 325 MG/10.15 ML ML PO ONE (18:33)
[2019-03-24] MEDS ORDERED: HYDROmorphone 0.5 MG/0.5 ML Syringe IVPUSH ONE (18:33)
--- NOTE | 2019-03-24 19:19 | EDM.PDOC ---
ED HPI GENERAL MEDICAL PROBLEM - General Chief Complaint: Genitourinary Problem Stated Complaint: FEVER AND BACK PAIN Time Seen by Provider: 03/24/19 14:00 Source of Information: Reports: Patient History Limitations: Reports: No Limitations - History of Present Illness INITIAL COMMENTS - FREE TEXT/NARRATIVE: 23-year-old female presents for evaluation and treatment of fever and back pain. Patient reports her symptoms started last night. Reports a temp of 102.1 home around 0500 this morning. She has been taking Tylenol and Motrin, last dose was around noon today. She is reporting pain to her lower back with the left being worse than the right. she is also prior reported bilateral flank pain. She reports associated symptoms of increased urinary frequency, nausea and decreased appetite. She denies any dysuria or hematuria. She reports she's had past medical history of pyelonephritis and kidney stones. She states that she never gets dysuria with urinary tract infections and pyonephritis. She reports her symptoms today feel similar to when she had a pyelonephritis in the past. Location: Reports: Back Left Flank Pain Score (Numeric/FACES): 6 - Related Data Allergies Allergy/AdvReac Type Severity Reaction Status Date / Time No Known Allergies Allergy Verified 03/24/19 14:16 Home Meds: Home Meds Pnv No.122/Iron/Folic Acid [ Multi Tablet] 1 each PO DAILY 04/25/18 [ History] buPROPion HCl [Wellbutrin SR] 150 mg PO BID 04/25/18 [History] Acetaminophen [Tylenol] 650 mg PO Q4H PRN tablet 06/10/18 [Rx] Benzocaine/Menthol [Dermoplast Pain Relief [place]] 1 spray TOP ASDIRECTED PRN #1 canister 06/10/18 [Rx] Docusate Sodium [Colace] 100 mg PO BID PRN cap 06/10/18 [Rx] Ibuprofen [Motrin] 600 mg PO Q4H PRN tablet 06/10/18 [Rx] Lanolin [Lansinoh HPA] 1 applic TOP ASDIRECTED PRN tube 06/10/18 [Rx] Witch Ad[place]isa [Tucks] 1 pad TOP ASDIRECTED PRN pad 06/10/18 [Rx] Past Medical History HEENT History: Reports: Other (See Below) Other HEENT History: Wears glasses Genitourinary History: Reports: Pyelonephritis, Renal Calculus, UTI, Recurrent PROGRAM MGR History: Reports: , Other (See Below) Other PROGRAM MGR History: Infertility, hx PPH Neurological History: Reports: Migraines, Other (See Below) Other Neuro History: Dizziness with migraines Psychiatric History: Reports: Anxiety, Depression - Past Surgical History HEENT Surgical History: Reports: Oral Surgery, Tonsillectomy Female Surgical History: Reports: Oophorectomy, Other (See Below) Other Female Surgeries/Procedures: Right ovarian cyst removed Neurological Surgical History: Reports: None Social & Family History - Family History Family Medical History: Noncontributory - Tobacco Use Smoking Status *Q: Never Smoker Second Hand Smoke Exposure: No - Caffeine Use Caffeine Use: Reports: None - Recreational Drug Use Recreational Drug Use: No ED ROS GENERAL - Review of Systems Review Of Systems: See Below Constitutional: Reports: Fever, Chills, Malaise GI/Abdominal: Reports: Nausea. Denies: Abdominal Pain, Vomiting : Reports: Flank Pain, Frequency. Denies: Dysuria, Hematuria Musculoskeletal: Reports: Back Pain ED EXAM, RENAL/ - Physical Exam Exam: See Below Exam Limited By: No Limitations General Appearance: Alert, WD/WN, Mild Distress Eye Exam: Bilateral Eye: Normal Inspection Ears: Normal External Exam Nose: Normal Inspection Throat/Mouth: Normal Inspection, Normal Lips, Normal Voice, No Airway Compromise , Other (tonsils are absent, oropharynx is erythematous ) Neck: Normal Inspection Respiratory/Chest: No Respiratory Distress, Lungs Clear, Normal Breath Sounds Cardiovascular: Normal Peripheral Pulses, Regular Rate, Rhythm, No Murmur GI/Abdominal: Normal Bowel Sounds, Soft, Non-Tender Back Exam: Normal Inspection, CVA Tenderness (L), CVA Tenderness (R) Extremities: Normal Inspection Neurological: Alert, Oriented, Normal Cognition Psychiatric: Normal Affect, Normal Mood Skin Exam: Diaphoretic, Increased Warmth Course - Vital Signs Last Recorded V/S: Last Vital Signs Temp 97.9 F 03/24/19 14:14 Pulse 145 H 03/24/19 14:14 Resp 16 03/24/19 14:14 BP 126/98 H 03/24/19 14:14 Pulse Ox 97 03/24/19 14:14 - Orders/Labs/Meds Labs: Laboratory Tests 03/24/19 03/24/19 03/24/19 Range/Units 14:25 14:42 14:42 WBC 16.99 H (3.98-10.04) K/mm3 RBC 4.54 (3.98-5.22) M/mm3 Hgb 13.2 D (11.2-15.7) gm/L Hct 39.9 (34.1-44.9) % MCV 87.9 D (79.4-94.8) fl MCH 29.1 (25.6-32.2) pg MCHC 33.1 (32.2-35.5) g/dl RDW Std Deviation 40.3 (36.4-46.3) fL Plt Count 227 (182-369) K/mm3 MPV 10.8 (9.4-12.3) fl Neutrophils % (Manual) 76 H (40-60) % Band Neutrophils % 2 (0-10) % Lymphocytes % (Manual) 14 L (20-40) % Atypical Lymphs % 0 % Monocytes % (Manual) 7 (2-10) % Eosinophils % (Manual) 1 (0.7-5.8) % Basophils % (Manual) 0 L (0.1-1.2) Toxic Granulation 1+ slight Platelet Estimate Adequate Plt Morphology Comment Normal RBC Morph Comment Normal Sodium 136 (136-145) mEq/L Potassium 3.4 L (3.5-5.1) mEq/L Chloride 102 (98-107) mEq/L Carbon Dioxide 22 (21-32) mEq/L Anion Gap 15.4 H (5-15) BUN 13 (7-18) mg/dL Creatinine 0.8 (0.55-1.02) mg/dL Est Cr Clr Drug Dosing 100.10 mL/min Estimated GFR (MDRD) > 60 (>60) mL/min BUN/Creatinine Ratio 16.3 (14-18) Glucose 93 (74-106) mg/dL Lactic Acid (0.4-2.0) mmol/L Calcium 8.8 (8.5-10.1) mg/dL Total Bilirubin 0.6 (0.2-1.0) mg/dL AST 12 L (15-37) U/L ALT 22 (14-59) U/L Alkaline Phosphatase 84 (46-116) U/L C-Reactive Protein 7.8 H* (<1.0) mg/dL Total Protein 8.0 (6.4-8.2) g/dl Albumin 3.7 (3.4-5.0) g/dl Globulin 4.3 gm/dL Albumin/Globulin Ratio 0.9 L (1-2) HCG, Qual (NEGATIVE) Urine Color Yellow (Yellow) Urine Appearance Slt cloudy H (Clear) Urine pH 6.0 (5.0-8.0) Ur Specific Reading 1.025 (1.005-1.030) Urine Protein 1+ H (Negative) Urine Glucose (UA) Negative (Negative) Urine Ketones Trace H (Negative) Urine Occult Blood Negative (Negative) Urine Nitrite Negative (Negative) Urine Bilirubin 1+ H (Negative) Urine Urobilinogen 0.2 (0.2-1.0) Ur Leukocyte Esterase Negative (Negative) Urine RBC Not seen (0-5) /hpf Urine WBC Not seen (0-5) /hpf Ur Squamous Epith Cells 0-5 (0-5) /hpf Calcium Oxalate Crystal Moderate H (NONE) Urine Bacteria Few (FEW) /hpf Urine Mucus Many H (FEW) /hpf 03/24/19 03/24/19 Range/Units 14:42 14:42 WBC (3.98-10.04) K/mm3 RBC (3.98-5.22) M/mm3 Hgb (11.2-15.7) gm/L Hct (34.1-44.9) % MCV (79.4-94.8) fl MCH (25.6-32.2) pg MCHC (32.2-35.5) g/dl RDW Std Deviation (36.4-46.3) fL Plt Count (182-369) K/mm3 MPV (9.4-12.3) fl Neutrophils % (Manual) (40-60) % Band Neutrophils % (0-10) % Lymphocytes % (Manual) (20-40) % Atypical Lymphs % % Monocytes % (Manual) (2-10) % Eosinophils % (Manual) (0.7-5.8) % Basophils % (Manual) (0.1-1.2) Toxic Granulation Platelet Estimate Plt Morphology Comment RBC Morph Comment Sodium (136-145) mEq/L Potassium (3.5-5.1) mEq/L Chloride (98-107) mEq/L Carbon Dioxide (21-32) mEq/L Anion Gap (5-15) BUN (7-18) mg/dL Creatinine (0.55-1.02) mg/dL Est Cr Clr Drug Dosing mL/min Estimated GFR (MDRD) (>60) mL/min BUN/Creatinine Ratio (14-18) Glucose (74-106) mg/dL Lactic Acid 0.8 (0.4-2.0) mmol/L Calcium (8.5-10.1) mg/dL Total Bilirubin (0.2-1.0) mg/dL AST (15-37) U/L ALT (14-59) U/L Alkaline Phosphatase (46-116) U/L C-Reactive Protein (<1.0) mg/dL Total Protein (6.4-8.2) g/dl Albumin (3.4-5.0) g/dl Globulin gm/dL Albumin/Globulin Ratio (1-2) HCG, Qual Negative (NEGATIVE) Urine Color (Yellow) Urine Appearance (Clear) Urine pH (5.0-8.0) Ur Specific Reading (1.005-1.030) Urine Protein (Negative) Urine Glucose (UA) (Negative) Urine Ketones (Negative) Urine Occult Blood (Negative) Urine Nitrite (Negative) Urine Bilirubin (Negative) Urine Urobilinogen (0.2-1.0) Ur Leukocyte Esterase (Negative) Urine RBC (0-5) /hpf Urine WBC (0-5) /hpf Ur Squamous Epith Cells (0-5) /hpf Calcium Oxalate Crystal (NONE) Urine Bacteria (FEW) /hpf Urine Mucus (FEW) /hpf Meds: Medications Discontinued Medications Generic Name Dose Route Start Last Admin Trade Name Shannan PRN Reason Stop Dose Admin Acetaminophen 650 mg 03/24/19 18:33 03/24/19 18:50 Tylenol PO 03/24/19 18:34 650 mg ONETIME ONE Administration Hydromorphone HCl 0.5 mg 03/24/19 18:33 03/24/19 18:46 Dilaudid IVPUSH 03/24/19 18:34 0.5 mg ONETIME ONE Administration Sodium Chloride 1,000 mls @ 999 mls/hr 03/24/19 14:19 03/24/19 15:12 Normal Saline IV 03/24/19 15:19 999 mls/hr ONETIME ONE Administration Sodium Chloride 1,000 mls @ 999 mls/hr 03/24/19 18:34 03/24/19 18:46 Normal Saline IV 03/24/19 19:34 999 mls/hr ONETIME ONE Administration Ketorolac Tromethamine 30 mg 03/24/19 14:54 03/24/19 15:13 Toradol IVPUSH 03/24/19 14:55 30 mg ONETIME ONE Administration Ondansetron HCl 4 mg 03/24/19 14:54 03/24/19 15:13 Zofran IVPUSH 03/24/19 14:55 4 mg ONETIME ONE Administration Penicillin G Benzathine 1.2 millunits 03/24/19 19:34 03/24/19 19:41 Bicillin L-A IM 03/24/19 19:35 1.2 millunits ONETIME ONE Administration Sodium Chloride 10 ml 03/24/19 14:21 03/24/19 15:13 Saline Flush FLUSH 10 ml ASDIRECTED PRN Administration Keep Vein Open - Radiology Interpretation Free Text/Narrative:: CT of the abdomen and pelvis without contrast impression per vrad: soft tissue swelling left adnexa measuring approximately 4.5x2.5 cm is probably a mildly prominent ovary. No urinary tract calculi r obstructive uropathy. No acute intraabdominal disease Pelvic ultrasound: Multiple real-time images were obtained transvaginally. Comparison: Prior pelvic ultrasound study of 12/11/15. Findings: Uterus is anteverted. Endometrial thickness is 1.6 cm. Small 3 mm anechoic area is noted within a subendometrial location most likely due to very minimal cyst. No other myometrial abnormality is seen. Left ovary shows follicles. Slightly complicated 2.4 cm finding is seen within left ovary which is most likely due to collapsing corpus luteum cyst. No free fluid is seen. Right ovary not visualized with history of prior right oophorectomy. Measurements: Uterus: Length 8.9 cm, AP height 6.3 cm, transverse width 5.0 cm Left ovary: 4.2 x 2.8 x 2.9 cm Impression: 1. Findings as noted above which I believe are incidental. 2. Nothing acute is appreciated on pelvic ultrasound exam. - Re-Assessments/Exams Free Text/Narrative Re-Assessment/Exam: 03/24/19 19:18 Reviewed the labs and imaging with the patient. Her urine looks clear. No signs of any obvious urinary tract infection. CT does not show a stone. I asked about additional symptoms such as upper respiratory symptoms including sore throat, ear pain or cough. She states that she has been experiencing a sore throat this was due to her allergies patient reports she's had her tonsils removed. will test for step. 03/24/19 19:50 Rapid strep returned positive. Patient would like bicillin. Will discharge home tonight. Discharge instructions as documented. Departure - Departure Time of Disposition: 19:50 Disposition: Home, Self-Care 01 Condition: Fair Clinical Impression: Strep pharyngitis - Discharge Information *PRESCRIPTION DRUG MONITORING PROGRAM REVIEWED*: No *COPY OF PRESCRIPTION DRUG MONITORING REPORT IN PATIENT MACY: No Instructions: Strep Throat, [id number] Referrals: PCP,None [Primary Care Provider] - Forms: ED Department Discharge Additional Instructions: Rest. make sure you are drinking plenty of fluids. you are Contagious until you have 24 hours of antibiotic in you. strep is spread by Saliva. Make sure you wash any cups, boiler toothbrush etc. to prevent reinfection. Good hand hygiene. [id number] Tylenol or Motrin as needed for pain relief. Please return to the ER should your symptoms change or worsen.
[2019-03-24] MEDS ORDERED: Penicillin G Benzathine 1,200,000 Units/2 ML Syringe IM ONE (19:34)
--- NOTE | 2019-03-24 19:46 | US ---
Pelvic ultrasound: Multiple real-time images were obtained transvaginally. Comparison: Prior pelvic ultrasound study of 12/11/15. Findings: Uterus is anteverted. Endometrial thickness is 1.6 cm. Small 3 mm anechoic area is noted within a subendometrial location most likely due to very minimal cyst. No other myometrial abnormality is seen. Left ovary shows follicles. Slightly complicated 2.4 cm finding is seen within left ovary which is most likely due to collapsing corpus luteum cyst. No free fluid is seen. Right ovary not visualized with history of prior right oophorectomy. Measurements: Uterus: Length 8.9 cm, AP height 6.3 cm, transverse width 5.0 cm Left ovary: 4.2 x 2.8 x 2.9 cm Impression: 1. Findings as noted above which I believe are incidental. 2. Nothing acute is appreciated on pelvic ultrasound exam. Diagnostic code #2
--- NOTE | 2019-03-25 08:57 | CT ---
CT abdomen and pelvis Technique: Multiple axial sections were obtained from above the dome of the diaphragm inferiorly through the pubic symphysis. Intravenous and oral contrast was not utilized. Study has been performed as a renal stone protocol. Comparison: No prior CT abdomen or pelvis exam is available. Findings: Small portion of the visualized lung bases are clear. Noncontrast appearance of the liver and spleen appear within normal limits. Gallbladder contains no calcified gallstones. Adrenal glands show no nodule. Pancreas is within normal limits. Aorta shows no aneurysm. No retroperitoneal adenopathy or mesenteric abnormalities are seen. No pelvic mass or adenopathy is seen. Soft tissue finding is noted within the left side of the pelvis which is shown on subsequent ultrasound exam performed later on the same date to represent incidental left ovarian findings. Kidneys show no abnormal calcifications. No ureteral dilatation or ureteral calculi are seen. No bladder calculi are seen. Impression: 1. Soft tissue finding within the left pelvis which is shown on subsequent pelvic ultrasound study to represent incidental left ovarian findings. 2. No renal calculi, ureteral dilatation or ureteral stone is seen. 3. Nothing acute is appreciated on noncontrast CT study of the abdomen and pelvis performed as a ureteral stone protocol. Diagnostic code #2 I agree with preliminary report from [facility], finalized on 03/24/19, 6:32 PM Central Time
== END 2019-03-24 20:05 | disposition home or self-care (01) ==
LOC: JD.ED 13:23
DX: J02.0 Streptococcal pharyngitis (principal); F41.9 Anxiety disorder, unspecified; F32.9 Major depressive disorder, single episode, unspecified; Z79.899 Other long term (current) drug therapy
CPT/HCPCS: 36415; 74176; 76830; 80053; 81001; 83605; 84703; 85007; 85027; 86140; 87040; 87086; 87430; 96361; 96372; 96374; 96375; 99284; A9270; J0561; J1170; J1885; J2405; J7040; 87081; 87088

== ENCOUNTER 2024-07-13 16:30 | Emergency (ER) | payer MEDICAID ==
[2024-07-13 17:48] LABS: BASOPHILS ABSOLUTE AUTO 0.1 K/mm3 (0.0-0.2); BASOPHILS PERCENT AUTO 0.8 % (0.0-1.0); EOSINOPHILS ABSOLUTE AUTO 0.4 K/mm3 (0.0-0.4); HEMATOCRIT 39.1 % (37.0-47.0); HEMOGLOBIN 12.7 gm/dl (12.0-16.0); IMMATURE GRAN ABSOLUTE AUTO 0.01 K/mm3 (0.00-0.05); IMMATURE GRAN PERCENT AUTO 0.2 % (0.0-0.4); LYMPHOCYTES PERCENT AUTO 31.6 % (24.0-44.0); MEAN CORPUSCULAR HEMOGLOBIN 29.9 pg (28.0-32.0); MEAN CORPUSCULAR HGB CONC 32.5 g/dl (32.0-36.0); MEAN PLATELET VOLUME 10.6 fl (9.4-12.3); MONOCYTES ABSOLUTE AUTO 0.5 K/mm3 (0.0-0.8); MONOCYTES PERCENT AUTO 7.1 % (0.0-8.0); NEUTROPHILS ABSOLUTE AUTO 3.5 K/mm3 (1.8-7.7); NEUTROPHILS PERCENT AUTO 54.3 % (41.0-71.0); PLATELET COUNT,PLT 216 K/mm3 (150-400); RED BLOOD CELL COUNT 4.25 M/mm3 (4.10-5.30); WHITE BLOOD CELL COUNT,WBC 6.37 K/mm3 (3.9-11.3)
[2024-07-13 18:07] LABS: ANION GAP 9.1 (5-15); BUN/CREATININE RATIO 11.3 (14-18); CALCIUM 9.1 mg/dL (8.5-10.1); CREATININE 0.8 mg/dL (0.55-1.02); EST CRCL DRUG DOSING (CG) 95.89 mL/min; POTASSIUM,K 4.1 mEq/L (3.5-5.1)
[2024-07-13 19:22] VITALS: BP 129/88; PULSE 92
== END 2024-07-13 19:23 | disposition home or self-care (01) ==
LOC: JD.ED 16:30
DX: N93.8 Other specified abnormal uterine and vaginal bleeding (principal); Z79.899 Other long term (current) drug therapy
CPT/HCPCS: 36415; 74018; 74018-26; 80048; 84703; 85025; 99284

== ENCOUNTER 2025-04-07 09:24 | Inpatient (IN) | payer MEDICAID ==
[2025-04-07] MEDS ORDERED: Lidocaine 1% 50 ML MDV INJECT PRN (09:34)
[2025-04-07] MEDS ORDERED: Calcium Carbonate 500 MG Tab.Chew PO PRN (09:34)
[2025-04-07] MEDS ORDERED: Nalbuphine 10 MG/1 ML Vial IVPUSH PRN (09:34)
[2025-04-07] MEDS ORDERED: Oxytocin/0.9 % Sodium Chloride 30 UNIT/500 ML BAG IV SCH (09:45)
[2025-04-07 10:04] LABS: BASOPHILS PERCENT AUTO 0.3 % (0.0-1.0); EOSINOPHILS ABSOLUTE AUTO 0.2 K/mm3 (0.0-0.4); EOSINOPHILS PERCENT AUTO 1.5 % (0.0-6.0); HEMATOCRIT 31.9 % (37.0-47.0); IMMATURE GRAN ABSOLUTE AUTO 0.08 K/mm3 (0.00-0.05); IMMATURE GRAN PERCENT AUTO 0.8 % (0.0-0.4); LYMPHOCYTES ABSOLUTE AUTO 1.6 K/mm3 (1.0-4.8); LYMPHOCYTES PERCENT AUTO 15.7 % (24.0-44.0); MEAN CORPUSCULAR HEMOGLOBIN 27.7 pg (28.0-32.0); MEAN CORPUSCULAR HGB CONC 32.6 g/dl (32.0-36.0); MEAN PLATELET VOLUME 10.7 fl (9.4-12.3); MONOCYTES ABSOLUTE AUTO 0.7 K/mm3 (0.0-0.8); NEUTROPHILS ABSOLUTE AUTO 7.6 K/mm3 (1.8-7.7); NEUTROPHILS PERCENT AUTO 74.7 % (41.0-71.0); PLATELET COUNT,PLT 197 K/mm3 (150-400); RED BLOOD CELL COUNT 3.76 M/mm3 (4.10-5.30); WHITE BLOOD CELL COUNT,WBC 10.16 K/mm3 (3.9-11.3)
[2025-04-07 10:05] LABS: HEMOGLOBIN 10.4 gm/dl (12.0-16.0); MEAN CORPUSCULAR VOLUME 84.8 fl (83.0-99.0)
[2025-04-07] MEDS: Acetaminophen 325 MG Tab PO PRN (10:11)
[2025-04-07 10:19] LABS: PROTEIN,URINE RANDOM < 6.0 mg/dL (0.0-11.8)
[2025-04-07 10:57] LABS: CREATININE 0.5 mg/dL (0.55-1.02); EST CRCL DRUG DOSING (CG) 152.08 mL/min; URIC ACID 4.2 mg/dL (2.6-6.0)
[2025-04-07] MEDS: Misoprostol 25 MCG (1/4 of 100 MCG) Tab VAG ONE (11:21)
[2025-04-07] MEDS: Misoprostol 25 MCG (1/4 of 100 MCG) Tab VAG PRN (15:27)
[2025-04-07] MEDS: Lactated Ringers 1,000 ML IV SCH (22:29)
[2025-04-07] MEDS ORDERED: diphenhydrAMINE 50 MG/ML SDV IVPUSH PRN (22:51)
[2025-04-07] MEDS: Bupivacaine/fentaNYL/NS 100 ML Bag EPIDUR PRN (23:02)
[2025-04-08] MEDS: Ondansetron 4 MG/2 ML SDV IVPUSH PRN (02:10)
[2025-04-08] MEDS: ePHEDrine 50 MG/ML SDV IVPUSH PRN (02:56)
[2025-04-08] MEDS: Oxytocin/0.9 % Sodium Chloride 30 UNIT/500 ML BAG IV SCH (04:22)
[2025-04-08] MEDS ORDERED: Docusate Sodium 100 MG Cap PO PRN (04:38)
[2025-04-08] MEDS: Ibuprofen 800 MG Tab PO SCH (05:39)
[2025-04-08] MEDS: Witch Hazel Medicated Pads 40/Jar TOP PRN (05:39)
[2025-04-08] MEDS: Benzocaine/Menthol 20%-0.5% Spray 78 GM Cannister TOP PRN (05:40)
[2025-04-08] MEDS: Propranolol 80 MG Cap.ER PO SCH (09:21)
[2025-04-08] MEDS: Magnesium Oxide 400 MG Tab PO SCH (09:21)
[2025-04-08] MEDS: HYDROmorphone 2 MG Tab PO ONE (19:26)
[2025-04-08] MEDS: Ondansetron 4 MG Tab.DIS PO PRN (19:44)
[2025-04-08] MEDS: Ketorolac 30 MG/ML SDV IVPUSH PRN (23:02)
[2025-04-09 08:33] VITALS: BP 122/77; PULSE 85
== END 2025-04-09 10:46 | disposition home or self-care (01) | DRG 806 ==
LOC: JD.OBCHECK 09:24 → JD.OB 09:28 → JD.OBCHECK 09:33 → JD.OB 09:34 → OBSVTOIN 09:34 → JD.OB 04-08 04:10
PROVIDERS: ADMIT Obstetrics & Gynecology; ATTEND Obstetrics & Gynecology
PROC: 10E0XZZ Delivery of Products of Conception, External Approach (ICD-10-PCS; principal; 2025-04-08)
PROC: 10907ZC Drainage of Amniotic Fluid, Therapeutic from Products of Conception, Via Natural or Artificial Opening (ICD-10-PCS; 2025-04-08)
PROC: 3E0P7VZ Introduction of Hormone into Female Reproductive, Via Natural or Artificial Opening (ICD-10-PCS; 2025-04-08)
PROC: 0HQ9XZZ Repair Perineum Skin, External Approach (ICD-10-PCS; 2025-04-08)
PROC: 3E0R3BZ Introduction of Anesthetic Agent into Spinal Canal, Percutaneous Approach (ICD-10-PCS; 2025-04-08)
PROC: 00HU33Z Insertion of Infusion Device into Spinal Canal, Percutaneous Approach (ICD-10-PCS; 2025-04-08)
DX: O13.4 Gestational [pregnancy-induced] hypertension without significant proteinuria, complicating childbirth (principal); O99.354 Diseases of the nervous system complicating childbirth; Z37.0 Single live birth; G43.109 Migraine with aura, not intractable, without status migrainosus; O70.0 First degree perineal laceration during delivery; Z98.890 Other specified postprocedural states; Z90.89 Acquired absence of other organs; Z90.722 Acquired absence of ovaries, bilateral; Z3A.38 38 weeks gestation of pregnancy
CPT/HCPCS: 36415; 51702; 59025; 59409; 82565; 82570; 83615; 84156; 84450; 84460; 84520; 84550; 85025; 86592; 86850; 86900; 86901; A9270-GY; J1885; J2405; J3490; J7120; J7999